=== PATIENT | male | born 1985 | race Caucasian/White ===

== ENCOUNTER 2017-08-10 00:42 | Emergency (ER) | payer SELFPAY ==
[2017-08-10] MEDS: ONDANSETRON (ODT) 4 MG TAB ODT (04:41)
[2017-08-10] MEDS: HYDROCODONE/APAP (5/325) TAB PO (04:42)
[2017-08-10] MEDS: KETOROLAC 30 MG INJ IM (04:43)
[2017-08-10 04:54] LABS: ADD MAN DIFF? NO
[2017-08-10 04:57] LABS: WHITE BLOOD COUNT 7.3 10^3/ul (4.8-10.8)
[2017-08-10 04:57] LABS: BASOPHIL # 0.1 10^3/ul (0.0-0.1); BASOPHILS % 1.1 % (0.0-2.0); EOSINOPHILS # 0.1 10^3/ul (0.0-0.5); EOSINOPHILS % 1.4 % (0.0-7.0); HEMATOCRIT 38.6 % (42.0-52.0); HEMOGLOBIN 13.2 g/dl (14.0-18.0); LYMPHOCYTES # 2.3 10^3/ul (0.8-2.9); MEAN CORPUSCULAR HEMOGLOBIN 33.4 pg (29.0-33.0); MEAN CORPUSCULAR HGB CONC 34.2 g/dl (32.0-37.0); MEAN CORPUSCULAR VOLUME 97.7 fl (82.0-101.0); MEAN PLATELET VOLUME 9.3 fl (7.4-10.4); MONOCYTES % 13.4 % (0.0-11.0); NEUTROPHIL # 3.8 10^3/ul (1.6-7.5); NEUTROPHILS % 51.6 % (39.0-77.0); PLATELET COUNT 302 10^3/UL (140-415); RED BLOOD COUNT 3.95 10^6/ul (4.70-6.10); RED CELL DISTRIBUTION WIDTH 12.3 % (11.5-14.5)
[2017-08-10 06:34] LABS: INR 0.97
[2017-08-10 06:35] LABS: ALANINE AMINOTRANSFERASE 287 IU/L (13-69); ALBUMIN 4.2 g/dl (3.3-4.9); ALBUMIN/GLOBULIN RATIO 1.27; ALKALINE PHOSPHATASE 221 IU/L (42-121); ANION GAP 18 (8-16); ASPARTATE AMINO TRANSFERASE 150 IU/L (15-46); BLOOD UREA NITROGEN 7 mg/dl (7-20); CALCIUM 8.3 mg/dl (8.4-10.2); CARBON DIOXIDE 24 mmol/L (21-31); CHLORIDE 108 mmol/L (97-110); CREATININE 0.67 mg/dl (0.61-1.24); GLUCOSE 117 mg/dl (70-220); PARTIAL THROMBOPLASTIN TIME 28.8 Sec (25.0-35.0); POTASSIUM 4.2 mmol/L (3.5-5.1); SODIUM 146 mmol/L (135-144); TOTAL PROTEIN 7.5 g/dl (6.1-8.1)
[2017-08-10 06:38] LABS: C-REACTIVE PROTEIN < 0.5 mg/dl (0.0-0.9)
== END 2017-08-10 07:43 | disposition home or self-care (01) ==
LOC: FTE 00:42
DX: M25.562 Pain in left knee (principal); Z79.01 Long term (current) use of anticoagulants
CPT/HCPCS: 73562; 80053; 85025; 85610; 85651; 85730; 86140; 96372; 99284-25